=== PATIENT | male | born 1950 | race African-American/Black ===

== ENCOUNTER 2016-08-07 21:27 | Emergency (ER) | payer MEDICAID ==
[~2016-08-07] VITALS: Ht 172.7 cm; Wt 75.0 kg
[2016-08-08 00:22] VITALS: BP 104/54
== END 2016-08-08 01:17 | disposition home or self-care (01) ==
LOC: EMS 21:28
DX: S09.90XA Unspecified injury of head, initial encounter (principal); G89.29 Other chronic pain; F17.210 Nicotine dependence, cigarettes, uncomplicated; F12.90 Cannabis use, unspecified, uncomplicated; W10.1XXA Fall (on)(from) sidewalk curb, initial encounter; Y93.89 Activity, other specified; Y92.89 Other specified places as the place of occurrence of the external cause; Y99.8 Other external cause status
CPT/HCPCS: 70450; 72125; 73502; 99284